=== PATIENT | female | born 2000 | race Caucasian/White ===

== ENCOUNTER 2022-01-01 12:01 | Emergency (ER) | payer OTHER ==
[2022-01-01] MEDS ORDERED: Dexameth. Sod Phosp. 10 MG/ML (CHEMO USE ONLY) ONE (12:56)
[2022-01-01] MEDS ORDERED: Ketorolac Tromethamine 30 MG/ML VIAL ONE (12:56)
[2022-01-01] MEDS ORDERED: Diazepam 5 MG TAB ONE (12:58)
== END 2022-01-01 14:21 | disposition home or self-care (01) ==
LOC: ERS 12:01
DX: M54.2 Cervicalgia (principal)
CPT/HCPCS: 96372; 99283; J1100; J1885

== ENCOUNTER 2022-01-26 09:19 | Observation (INO) | payer OTHER ==
[2022-01-22 14:47] VITALS: BMI 27.4
[2022-01-26] MEDS ORDERED: Lidocaine 1% MPF 2 ML VIAL ONE ×2 (09:56→12:12)
[2022-01-26] MEDS ORDERED: Rocuronium Bromide 50 MG/5 ML VIAL ONE (11:03)
[2022-01-26] MEDS ORDERED: fentaNYL Citrate/PF 100 MCG/2 ML SYRINGE ONE (11:03)
[2022-01-26] MEDS ORDERED: Lidocaine 1% PF 5 ML VIAL ONE (11:03)
[2022-01-26] MEDS ORDERED: PROPOFOL 20 ML ONE (11:03)
[2022-01-26] MEDS ORDERED: Thrombin 5000 UNITS/5 ML VIAL ONE (11:43)
[2022-01-26] MEDS ORDERED: Sodium Chloride 0.9% 100 ML ONE (11:57)
[2022-01-26] MEDS ORDERED: CEFAZOLIN 2 GM VIAL ONE (11:57)
[2022-01-26] MEDS ORDERED: Vecuronium 10 MG VIAL ONE (12:12)
[2022-01-26] MEDS ORDERED: Rocuronium Bromide 10 MG/ML (10ML VIAL) ONE (12:12)
[2022-01-26] MEDS ORDERED: Ondansetron PF 4 MG/2 ML Vial ONE (12:12)
[2022-01-26] MEDS ORDERED: Phenylephrine 10 MG/ML VIAL ONE (12:12)
[2022-01-26] MEDS ORDERED: Glycopyrrolate 0.2 MG/ML 5 ML SYRINGE ONE (12:12)
[2022-01-26] MEDS ORDERED: Ketorolac Tromethamine 30 MG/ML VIAL ONE (12:12)
[2022-01-26] MEDS ORDERED: PROPOFOL 200 MG/20 ML VIAL ONE (12:12)
[2022-01-26] MEDS ORDERED: Dexamethasone 20 MG/5 ML VIAL ONE (12:12)
[2022-01-26] MEDS ORDERED: Neostigmine Methylsulfate 3 MG/3 ML SYRINGE ONE (12:12)
[2022-01-26] MEDS ORDERED: SUGAMMADEX SODIUM 200 MG/2 ML VIAL ONE (13:46)
[2022-01-26] MEDS ORDERED: Meperidine HCl/PF 25 MG/ML VIAL ONE (14:06)
[2022-01-26] MEDS ORDERED: diphenhydrAMINE 25 MG CAP PO PRN (14:10)
[2022-01-26] MEDS ORDERED: Ondansetron PF 4 MG/2 ML Vial IVP PRN (14:10)
[2022-01-26] MEDS ORDERED: Acetaminophen 325 MG TAB PO PRN (14:10)
[2022-01-26] MEDS ORDERED: Morphine 2 MG/ML VIAL SLOW IVP PRN (14:10)
[2022-01-26] MEDS ORDERED: traMADol HCl 50 MG TAB PO PRN (14:10)
[2022-01-26] MEDS ORDERED: HYDROcodone/Acetaminophen 7.5/325 mg Tablet PO PRN (14:10)
[2022-01-26] MEDS ORDERED: Promethazine HCl 25 MG/ML VIAL IM PRN (14:15)
[2022-01-26] MEDS: Sodium Chloride 0.9% 1,000 ML IV SCH ×2 (14:15→20:30)
[2022-01-26] MEDS ORDERED: Promethazine HCl 25 MG/ML VIAL IVPB PRN (14:15)
[2022-01-26] MEDS ORDERED: Ondansetron HCl/PF 4 MG/2 ML Vial IVP PRN (14:15)
[2022-01-26] MEDS ORDERED: tiZANidine HCl 4 MG TAB PO PRN (14:17)
[2022-01-26] MEDS ORDERED: Fentanyl 100 MCG/2 ML VIAL ONE ×3 (14:19→14:53)
[2022-01-26] MEDS: Acetaminophen/Codeine 30-300mg Tablet PO PRN (20:28)
[2022-01-26] MEDS: CEFAZOLIN 2 GM in Sodium Chloride 0.9% 100 ML IVPB SCH (20:29)
[2022-01-27] MEDS: Acetaminophen/Codeine 30-300mg Tablet PO PRN (04:08)
[2022-01-27] MEDS: CEFAZOLIN 2 GM in Sodium Chloride 0.9% 100 ML IVPB SCH (04:09)
[2022-01-27 07:56] VITALS: BP 97/62; TEMP 98.2
== END 2022-01-27 11:07 | disposition home or self-care (01) ==
LOC: SDC 09:19 → SURG A 15:39
PROVIDERS: ADMIT Surgery; ATTEND Surgery
PROC: 0SB40ZZ Excision of Lumbosacral Disc, Open Approach (ICD-10-PCS; principal; 2022-01-26)
PROC: 01NR0ZZ Release Sacral Nerve, Open Approach (ICD-10-PCS; 2022-01-26)
DX: M51.17 Intervertebral disc disorders with radiculopathy, lumbosacral region (principal)
CPT/HCPCS: 76000; J0690; J1100; J1885; J2175; J2370; J2405; J2704; J3010; J3370; J3490; J7050